=== PATIENT | female | born 1970 | race Caucasian/White ===

== ENCOUNTER 2018-03-04 20:28 | Observation (INO) | payer MEDICAID ==
--- NOTE | 2018-03-04 20:37 | Emergency Department Record ---
History of Present Illness - General Chief Complaint: Syncope Stated Complaint: SYNCOPE Time Seen by Provider: 03/04/18 20:36 Source: Patient Mode of Arrival: Wheelchair Limitations: No limitations Travel/Exposure to [place] Within 21 Days of Symptoms: No - History of Present Illness Initial Comments: 47 yo female presents to ED for evaluation following an episode of passing out just prior to arrival. Patient reports chest discomfort in the mid-chest region , rated at 6/10 currently. Patient reports a history of DM, CAD s/p stent placement in 2012 (in [place]), and HTN. Patient denies any recent illness, fevers, chills, or cough symptoms. Family reports that the patient has been under a lot of stress related to recent family , reports that she "may be having an anxiety attack". MD Complaint: Collapsed Witnessed: Yes - by bystander Injuries Sustained Associated with Event: None Current Symptoms: Chestpain History: History of CAD Treatments Prior to Arrival: None - Rick Coma Scale Eye Response: (4) Open spontaneously Motor Response: (6) Obeys commands Verbal Response: (5) Oriented [place] Total: 15 - Related Data Allergies Allergy/AdvReac Type Severity Reaction Status Date / Time Penicillins Allergy RASH Verified 03/04/18 20:36 Review of Systems Constitutional: Denies: Chills, Fever, Malaise, Night sweats Eyes: Denies: Eye discharge, Eye pain ENT: Denies: Congestion, Ear pain, Epistaxis Respiratory: Denies: Cough, Dyspnea Cardiovascular: Reports: Chest pain. Denies: Dyspnea on exertion Endocrine: Denies: Fatigue, Heat or cold intolerance Gastrointestinal: Denies: Abdominal pain, Nausea, Vomiting Genitourinary: Denies: Incontinence, Retention Musculoskeletal: Denies: Arthralgia, Back pain Skin: Denies: Bruising, Change in color Neurological: Denies: Abnormal gait, Confusion, Headache, Seizure Psychiatric: Reports: Anxiety Hematological/Lymphatic: Denies: Anemia, Blood Clots Physical Exam - General General Appearance: Alert, Oriented x3, Cooperative, Anxious, Other ( Diaphoretic appearing on examination) Limitations: No limitations - Head Head exam: Atraumatic, Normocephalic, Normal inspection Head exam detail: negative: Abrasion, Contusion, Ken's sign, General tenderness, Hematoma, Laceration - Eye Eye exam: Normal appearance. negative: Conjunctival injection, Periorbital swelling, Periorbital tenderness, Scleral icterus - ENT Ear exam: negative: Auricular hematoma, Auricular trauma Nasal Exam: negative: Active bleeding, Discharge, Dried blood, Foreign body Mouth exam: negative: Drooling, Laceration, Muffled voice, Tongue elevation - Neck Neck exam: Normal inspection. negative: Meningismus, Tenderness - Respiratory Respiratory exam: Normal lung sounds bilaterally. negative: Rales, Respiratory distress, Rhonchi, Stridor - Cardiovascular Cardiovascular Exam: Regular rate, Normal rhythm, Normal heart sounds - GI/Abdominal GI/Abdominal exam: Soft. negative: Rebound, Rigid, Tenderness - Rectal Rectal exam: Deferred - exam: Deferred - Extremities Extremities exam: Normal inspection. negative: Calf tenderness, Pedal edema, Tenderness - Back Back exam: Denies: CVA tenderness (R), CVA tenderness (L) - Neurological Neurological exam: Alert, Normal gait, Oriented X3 - Psychiatric Psychiatric exam: Anxious - Skin Skin exam: Normal color. negative: Abrasion Type of lesion: negative: abrasion Course - Reevaluation(s) Reevaluation #1: 03/04/18 20:36 EKG: NSR 77 Normal axis, normal intervals No acute ST-T wave changes. Reevaluation #2: 03/04/18 21:00 Accu check 115. Reevaluation #3: 03/04/18 21:14 2nd EKG: NSR 72 Normal axis, normal intervals No acute ST-T wave changes Initial labs reviewed, WBC 18.1, AG 20. Patient has normal Troponin, remainder of the patient's labs appear normal. Patient is going for CTA chest at this time. Reevaluation #4: 03/04/18 22:07 CTA Chest: No acute abnormality Reevaluation #5: 03/04/18 22:21 Patient was reassessed, updated on all results. Patient is no-longer diaphoretic, she is much more alert and well appearing at this time. Patient believes that her symptoms are related to starting a new medication tonight. Will admit for cardiac evaluation and consultation with Dr. Wiley in the morning. Patient and family at the bedside are in agreement with the plan of care as discussed. 03/05/18 06:43 Case was discussed with Dr. Castellon, will accept admission at this time. Medical Decision Making - Lab Data Result diagrams: 03/04/18 20:40 03/04/18 20:40 Disposition Disposition: Admit Clinical Impression: Chest pain Qualifiers: Chest pain type: unspecified Qualified Code(s): R07.9 - Chest pain, unspecified Disposition: Still a Patient at [facility] Decision to Admit: Admit from ER Decision to Admit Date: 03/04/18 Decision to Admit Time: 22:23 Condition: (2) Stable Time of Disposition: 22:23 Quality - Quality Measures Quality Measures: N/A - Blood Pressure Screening Does Patient Have Any of the Following: Active Dx of HTN Blood Pressure Classification: Normal BP Reading Systolic Measurement: 110 Diastolic Measurement: 64 Screening for High Blood Pressure: Patient Exclusion, Hx of HTN [G9744]
[2018-03-04 20:51] LABS: BASO % 0.6 % (0-6); EOS % 4.6 % (0-6); GRAN % 44.7 % (47-80); HEMATOCRIT 39.9 % (35.0-47.0); HEMOGLOBIN 12.8 gm/dl (11.6-16.0); LYMPH % 43.2 % (16-45); MEAN CELL VOLUME 89.9 fl (81-97); MEAN CORPUSCULAR HEMOGLOBIN 28.8 pg (27-33); MEAN CORPUSCULAR HGB CONC 32.1 g/dl (32-36); MEAN PLATELET VOLUME 10.3 fl (7.4-10.4); MONO % 6.9 % (0-9); PLATELET COUNT 390 K/uL (130-400); RED BLOOD COUNT 4.44 M/uL (3.80-5.40); RED CELL DISTRIBUTION WIDTH 14.1 % (11.5-14.5); WHITE BLOOD COUNT W/O DIFF 18.1 K/uL (4.2-12.2)
[2018-03-04] MEDS ORDERED: ASPIRIN 81 MG CHEWABLE TABLET PO ONE (20:56)
[2018-03-04] MEDS ORDERED: 0.9 % SODIUM CHLORIDE 1000ML 1,000 ML IV SCH ×2 (21:00→21:15)
[2018-03-04 21:02] LABS: BLOOD UREA NITROGEN 14 mg/dL (6-20); CREATININE 0.9 mg/dL (0.5-0.9); EST GLOMERULAR FILTRATION RATE > 60 mL/min
[2018-03-04 21:05] LABS: GLUCOSE,RANDOM 112 mg/dL (74-109)
[2018-03-04 21:08] LABS: CREATINE PHOSPHOKINASE 191 U/L (26-192)
[2018-03-04 21:10] LABS: CKMB 4.6 ng/mL (<3.77)
[2018-03-04] MEDS ORDERED: ONDANSETRON HCL IV 4 MG/2 ML VIAL IVP ONE (21:12)
[2018-03-04] MEDS ORDERED: ACETAMINOPHEN 500 MG TABLET PO PRN (23:02)
[2018-03-04] MEDS ORDERED: 0.9 % SODIUM CHLORIDE 1000ML 1,000 ML IV PRN (23:02)
[2018-03-05 06:56] LABS: AMPHETAMINE SCREEN URINE NOT DETECTED; BARBITURATE SCREEN URINE NOT DETECTED; BENZODIAZEPINE SCREEN URINE NOT DETECTED; COCAINE SCREEN URINE NOT DETECTED; METHADONE SCREEN URINE NOT DETECTED; METHAMPHETAMINE SCREEN NOT DETECTED; OPIATE SCREEN URINE NOT DETECTED; OXYCODONE SCREEN URINE NOT DETECTED; PHENCYCLIDINE SCREEN URINE NOT DETECTED; PROPOXYPHENE SCREEN URINE NOT DETECTED; THC SCREEN URINE DETECTED; TRICYCLIC ANTIDEPRESSANT SCRN NOT DETECTED
--- NOTE | 2018-03-05 07:25 | CT ANGIOGRAM REPORT ---
EXAM: CTA OF THE CHEST HISTORY: PAIN. TECHNIQUE: CTA of the chest was performed following IV administration of 80 ml of Omnipaque 350 contrast. Axial images were obtained with coronal and sagittal MIP reconstructions. Comparison: None. FINDINGS: The mediastinal vasculature enhances normally. No intraluminal filling defect to suggest pulmonary embolus. Negative for thoracic aortic aneurysm or dissection. The heart and pericardium are unremarkable. Limited evaluation of the upper abdomen is unremarkable. The osseous structures are grossly intact. No pneumothorax. The visualized airways are patent. The lungs are clear. IMPRESSION: NEGATIVE EXAMINATION. JOB [facility]BER: [id number] [facility]
--- NOTE | 2018-03-05 10:36 | Discharge Note ---
VTE H&P Assessment - Risk for VTE Risk for VTE: No Risk Level: Very Low Risk Assessment Date: 03/05/18 Risk Assessment Time: 10:29 VTE Orders Placed or Will Be Placed: No VTE Reason for No Prophylaxis: Not Indicated Discharge Note - Date Date of Discharge Note: 03/05/18 Disposition: Home, Self-Care Condition: (2) Stable Additional Instructions: patient to follow up with Dr. Stephen Leal next week atient to obtain outpatient echocardiogram as recommended by Dr. Sanchez patient is to return to the emergency department if worse Patient is signing AMA because she has a job interview at1pm today and wants to be with her mother to support her because her step father yesterday. Risk of complicatioons and could happen explained to the patient Continue her home meds Forms: Patient Portal Access
--- NOTE | 2018-03-05 10:45 | Discharge Note ---
VTE H&P Assessment - Risk for VTE Risk for VTE: No Risk Level: Very Low Risk Assessment Date: 03/05/18 Risk Assessment Time: 10:29 VTE Orders Placed or Will Be Placed: No VTE Reason for No Prophylaxis: Not Indicated Discharge Note - Date Date of Discharge Note: 03/05/18 Disposition: Home, Self-Care Condition: (2) Stable Additional Instructions: patient to follow up with Dr. Stephen Leal next week atient to obtain outpatient echocardiogram as recommended by Dr. Sanchez patient is to return to the emergency department if worse Patient is signing AMA because she has a job interview at1pm today and wants to be with her mother to support her because her step father yesterday. Risk of complicatioons and could happen explained to the patient Continue her home meds take aspirin 81 mg per day Forms: Patient Portal Access
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
--- NOTE | 2018-03-05 12:40 | Discharge Summary ---
DATE OF ADMISSION: 03/04/2018 DATE OF DISCHARGE: 03/05/2018 DISCHARGE DIAGNOSES: 1. Syncope. 2. Vasovagal syncope. 3. Possible cardiac arrhythmia. 4. Anxiety over of stepfather. Was informed of this approximately 1 hour before this episode. 5. History of chronic obstructive pulmonary disease. 6. History of diabetes mellitus type 2. 7. History of anxiety and depression. 8. History of coronary artery disease with stents placed in [place]. 9. History of hypercholesterolemia. ATTENDING PHYSICIAN: Say Castellon DO REASON FOR HOSPITALIZATION: The patient had a syncopal episode in the car after finding out her stepfather . She came to the emergency department for evaluation. She said she had some heaviness in her chest, breathing fast, short of breath. She was very upset. Evaluated by Dr. Gordillo. CTA was negative. Cardiac labs were negative. EKG was unremarkable. She was admitted to the hospital for serial cardiac enzymes and cardiac monitoring. SIGNIFICANT FINDINGS: CTA with no signs of PE or any abnormalities. Cardiac labs were negative. CK-MB was slightly elevated at 4.6. EKG with no acute changes. Normal sinus rhythm. Cardiac monitoring normal sinus rhythm. No arrhythmia seen. The serial troponin T's were negative. Consultation with Dr. Wiley who recommended transferring to [place]. Patient refused. AMA forms were signed. Also recommended doing outpatient therapy, which is set up for her as a second choice of treatment. Echocardiogram outpatient and follow up with Dr. Stephen Lock and Dr. Monroy. HOSPITAL COURSE: The patient was asymptomatic throughout the hospitalization. CONDITION ON DISCHARGE: Stable and improved. DISCHARGE INSTRUCTIONS: Follow up with Dr. Stephen Lock, her primary doctor, next week. Follow up with Dr. Monroy as already scheduled 03/11/2018, sooner if having problems. Follow up with the nearest emergency department if she has any more symptoms. An echocardiogram will be set up outpatient. Continue her home medications. We will add an aspirin, because that is not on the list, 81 mg a day. Lisinopril 20 mg a day, metoprolol tartrate 50 mg b.i.d., glipizide 5 mg daily, gabapentin 600 mg, metformin 1000 mg b.i.d., omeprazole 20 mg daily, pravastatin 40 mg daily, Symbicort 80/4.5 two puffs b.i.d. I recommend she stop the Abilify and Cymbalta because she just started those medications and she thinks they may have made this worse. She read the insert and all these symptoms are on those medications. I told her it is probably not the medication but stopping it would not harm her. She is planning to stop them. The patient signed out AMA and risks were explained to her. She is willing to take those risks; the risks of cardiac complications and . HERIBERTO
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
== END 2018-03-05 11:26 | disposition home or self-care (01) ==
LOC: ER 20:28 → MEDSURG 22:57
PROVIDERS: ADMIT Emergency Medicine; ATTEND Emergency Medicine
DX: R55 Syncope and collapse (principal); F41.1 Generalized anxiety disorder; E11.9 Type 2 diabetes mellitus without complications; E78.00 Pure hypercholesterolemia, unspecified; I25.10 Atherosclerotic heart disease of native coronary artery without angina pectoris; J44.9 Chronic obstructive pulmonary disease, unspecified; F31.9 Bipolar disorder, unspecified; K21.9 Gastro-esophageal reflux disease without esophagitis
CPT/HCPCS: 99285 ×2; 96374; 96361; 82550; 83605; 85025; 82553; 80048; 36416; 82948; 80305; 84484 ×2; 71275; 94761; 93005; 93010; G0378 ×2; Q9967; J2405; 99220; J7030